=== PATIENT | male | born 1980 | race Two or more races ===

== ENCOUNTER 2017-10-17 07:47 | Emergency (ER) | payer OTHER ==
[~2017-10-17] VITALS: Ht 177.8 cm; Wt 83.9 kg
--- NOTE | 2017-10-17 07:55 | NUR ---
BBLAPF/IN CUSTODY: MEDICAL EVAL. TACHYCARDIA S/P USING METH AND HEROINE. SHOWS ERRATIC BEHAVIOR. PATIENT BREATHING EVEN AND UNLABORED. NO SOB. VITALS STABLE. SAFETY AND COMFORT MEASURES IN PLACE. AWAITING MD ORDERS.
[2017-10-17] MEDS ORDERED: OLANZAPINE 10 MG VIAL IM ONE ×2 (07:57→08:00)
[2017-10-17] MEDS ORDERED: CLONIDINE HCL 0.1 MG TABLET ONE (07:57)
[2017-10-17] MEDS ORDERED: CLONIDINE HCL 0.1 MG TABLET PO ONE (08:00)
[2017-10-17] MEDS ORDERED: hydrOXYzine HCL INJ 50 MG/ML VIAL IM ONE (08:00)
--- NOTE | 2017-10-17 08:05 | NUR ---
CANCEL [facility] ORDER PER DR. MEYERS D/T NOT AVAILABLE AT PHARMACY AT THIS TIME.
--- NOTE | 2017-10-17 08:24 | NUR ---
Patient discharged [employer] CUSTODY IN stable condition. Written and verbal after care instructions given.
[2017-10-17] MEDS ORDERED: LORAZEPAM INJ 2 MG/ML VIAL ONE (08:26)
[2017-10-17] MEDS ORDERED: LORAZEPAM INJ 2 MG/ML VIAL IM ONE (08:30)
[2017-10-17 08:31] VITALS: BP 145/70
== END 2017-10-17 08:32 ==
LOC: ER 07:49
DX: F19.10 Other psychoactive substance abuse, uncomplicated (principal); F10.10 Alcohol abuse, uncomplicated
CPT/HCPCS: 96372 ×2; 99284; A4606; J2060; J3410; J3490; Z7610

== ENCOUNTER 2017-10-17 09:21 | Emergency (ER) | payer OTHER ==
[~2017-10-17] VITALS: Ht 177.8 cm; Wt 83.9 kg
--- NOTE | 2017-10-17 09:21 | NUR ---
PATIENT BIB [facility] / [employer] BACK FROM RETIREMENT, PATIENT LETHARGIC AND SLOW RESPIRATIONS. PATIENT WAS SEDATED EARLIER TODAY, BUT NOW TOO LETHARGIC. CURRENTLY RESPONDS TO PAINFUL STIMULI. BREATHING EVEN AND UNLABORED, NOSE TRUMPET IN PLACE ON RIGHT NARE. NO SOB. VITALS STABLE. SAFETY AND COMFORT MEASURES IN PLACE. AWAITING MD ORDERS.
--- NOTE | 2017-10-17 09:40 | NUR ---
NARCOTICS DETECTIVE AT BEDSIDE FOR BLOOD DRAW.
--- NOTE | 2017-10-17 09:42 | NUR ---
URINE OBTAINED VIA STRAIGHT CATH PER MD ORDERS AND SENT TO LAB.
--- NOTE | 2017-10-17 09:45 | NUR ---
PATIENT TOO LETHARGIC TO PARTICIPATE IN STROKE ASSESSMENT, DOESNT FOLLOW ANY COMMANDS. WILL REASSESS AT A LATER TIME
[2017-10-17 09:46] LABS: APPEARANCE,URINE Clear (CLEAR); BILIRUBIN,URINE LARGE (NEGATIVE); BLOOD, URINE Moderate Ery/uL (NEGATIVE); COLOR,URINE Yellow (YELLOW); KETONES,URINE 80 (NEGATIVE); LEUKOCYTE ESTERASE ,URINE Negative (NEGATIVE); NITRITE, URINE Negative (NEGATIVE); PROTEIN,URINE >=300 mg/dl (NEGATIVE); UGLUCOSE Negative (NEGATIVE)
[2017-10-17 09:46] LABS: BASOPHILS % (AUTO) 0.3 % (0.0-2.0); EOSINOPHILS # (AUTO) 0.2 /CMM (0.0-0.7); HEMATOCRIT 48 % (39-51); HEMOGLOBIN 16.3 g/dL (13.5-17.5); LYMPHOCYTES # (AUTO) 2.2 /CMM (0.8-4.8); LYMPHOCYTES % (AUTO) 14.5 % (20.0-44.0); MEAN CORPUSCULAR HEMOGLOBIN 30 PG (26.0-33.0); MEAN CORPUSCULAR HGB CONC 34 g/dl (31.0-36.0); MEAN CORPUSCULAR VOLUME 89 fL (80-96); MONOCYTES # (AUTO) 1.4 /CMM (0.1-1.30); MONOCYTES % (AUTO) 9.4 % (2.0-12.0); NEUTROPHILS # (AUTO) 11.3 /CMM (1.8-8.9); NEUTROPHILS % (AUTO) 74.8 % (43.0-81.0); PLATELET COUNT (AUTO) 283 /CMM (150-450); RDW COEFFICIENT OF VARIATION 12.1 (11.5-15.0); RED BLOOD CELL COUNT(AUTO) 5.43 MIL/uL (4.5-6.0); WHITE BLOOD COUNT (AUTO) 15.2 K/uL (4.3-11.0)
[2017-10-17 09:52] LABS: CALCIUM, SERUM 9.1 mg/dL (8.5-10.1); CARBON DIOXIDE 25 mmol/L (21-32); CHLORIDE 98 mmol/L (98-107); CREATININE 1.1 mg/dL (0.6-1.3); GLUCOSE 118 mg/dL (74-106); POTASSIUM 3.2 mmol/L (3.5-5.1); SODIUM SERUM 134 mmol/L (136-145); UREA NITROGEN, BLOOD 20 mg/dL (7-18)
[2017-10-17 09:58] LABS: ACETAMINOPHEN 1 ug/ml (10-30); ALANINE AMINOTRANSFERASE 179 U/L (12-78); ALBUMIN 4.6 g/dL (3.4-5.0); ALCOHOL, BLOOD < 3 mg/dL (0-0); ALKALINE PHOSPHATASE 74 U/L (46-116); ASPARTATE AMINOTRANSFERASE 474 U/L (15-37); BILIRUBIN,DIRECT 0.3 mg/dL (0.0-0.2); BILIRUBIN,TOTAL 1.4 mg/dL (0.2-1.0); TOTAL PROTEIN, SERUM 8.1 g/dL (6.4-8.2)
[2017-10-17 09:59] LABS: BACTERIA,URINE Few /HPF (None Seen); MUCUS,URINE Few /LPF (None Seen); SQUAMOUS EPITHELIAL CELL,UR Few /HPF (None Seen)
[2017-10-17 10:02] LABS: SALICYLATE 2.5 mg/dL (2.8-20.0)
--- NOTE | 2017-10-17 17:15 | NUR ---
patient awake and alert. ambulating with no complications. cleared for discharge. left ambulatory. Patient discharged to home in stable condition. Written and verbal after care instructions given. Patient verbalizes understanding of instruction.
[2017-10-17 17:46] VITALS: BP 128/81
== END 2017-10-17 17:47 | disposition home or self-care (01) ==
LOC: ER 09:23
DX: Z02.89 Encounter for other administrative examinations (principal); F19.10 Other psychoactive substance abuse, uncomplicated
CPT/HCPCS: 36415; 51702; 80048; 80076; 80305; 80329; 81001; 85025; 87086; 99284; A4606; G0480 ×2; Z7610; 81000-TC

== ENCOUNTER 2020-06-20 00:26 | Emergency (ER) | payer OTHER ==
[~2020-06-20] VITALS: Ht 172.7 cm; Wt 72.6 kg
[2020-06-20 00:38] VITALS: BP 118/85
== END 2020-06-20 00:44 | disposition home or self-care (01) ==
LOC: ER 00:30
DX: Z02.89 Encounter for other administrative examinations (principal); F15.90 Other stimulant use, unspecified, uncomplicated; F11.90 Opioid use, unspecified, uncomplicated